=== PATIENT | male | born 1970 | race African-American/Black ===

== ENCOUNTER → 2023-05-15 10:08 | Outpatient (REF) | payer OTHER, SELFPAY ==
--- NOTE | 2023-05-15 10:17 | ECG_ITS ---
Test Reason : qt check Blood Pressure : / mmHG Vent. Rate : 094 BPM Atrial Rate : 094 BPM P-R Int : 176 ms QRS Dur : 084 ms QT Int : 340 ms P-R-T Axes : 046 049 057 degrees QTc Int : 425 ms Normal sinus rhythm with sinus arrhythmia Minimal voltage criteria for LVH, may be normal variant ( Sokolow-Hoyos ) Borderline ECG When compared with ECG of 19-NOV-2018 10:32, No significant change was found Referred By: RAVI MELTON Electronically Signed By:DEISI FORD
== END ==
LOC: HO.CARD 10:08
PROVIDERS: Visit Provider Nurse Practitioner Psychiatric/Mental Health
DX: Z79.899 Other long term (current) drug therapy (principal)
CPT/HCPCS: 93005